=== PATIENT | male | born 1960 | race Two or more races ===

== ENCOUNTER 2019-05-30 09:10 | Outpatient (CLI) | payer OTHER ==
[2019-05-30 10:05] VITALS: BP 140/95
--- NOTE | 2019-05-30 10:05 | SLEEP CARE CONSULTATION ---
Information from patient questionnaire entered by Kristen Brady. I have reviewed and concur with the information entered by Kristen Brady. This document represents the service I personally performed and the decisions made by me, All Birmingham MD, [facility]. History of Present Illness Reason for Visit: New patient, Previously diagnosed sleep apnea (very severe AHI 66.7), sleep apnea on CPAP therapy Chief Complaint: reports: Other (to check CPAP) Usual bedtime: [id number] Time it takes to fall asleep: fast Observed to quit breathing while asleep: No Sleeps alone due to snoring: No Number of times waking at night: 3 Reasons for waking at night: reports: Pain Toss, Turn, or Twitch while sleeping: Yes Recalls having dreams: Yes Usually gets out of bed at: 0300 Feels refreshed in the morning: Yes Morning headache: No Sleepy or fatigued during the day: No Ever fallen asleep while driving: No Takes day naps: No Dreams during day naps: No Prior sleep studies: Yes Year and Where: 2008 [facility] Additional HPI information: I had the pleasure of seeing Mr. Duenas today regarding obstructive sleep apnea-hypopnea. As you know, he is a 58 year old gentleman who was diagnosed with the sleep-disordered breathing here in 2008. The AHI was 66.7 and tequila oxygen saturation was 70%. He is using a Respironics CPAP device set at 5 15 cmH2O. The machine is his second one. He uses it every night and all night. The compliance data show usage in 30 out of the past 30 nights, averaging 5 hours a night. The residual AHI is 2.6. He wears a nasal mask. He gets his supplies from [employer]. He finds the treatment very beneficial. He feels that occasionally the pressure is too high. He does not snore through the CPAP. Since the diagnosis, he has lost 20 lbs. CPAP Compliance Data - Data Reviewed with Patient Average duration of nightly device use: 4h 56m Compliance rate %: 76.7 Current pressure setting (cmH2O): 5-15 Humidity settin Subjective Initial Dustin Sleepiness Scale score: 14 Past Medical History Past Medical History: reports: Hypertension, Hypothyroidism, Other (back pain) Social History The patient is NOT EMPLOYED. Patient is and lives in [place]. Have you smoked in the past 12 months: No Alcohol use: Yes Alcohol amount and frequency: 3/week Caffeine use: Yes Caffeine amount and frequency: 1 cup/day Family History Family history of sleep disordered breathing: No Allergies and Home Medications Drug allergies reviewed: Yes Home medication list reviewed: Yes Review of Systems Weight loss over past 5 years: 37 Cardiovascular: reports: high blood pressure Respiratory: denies: shortness of breath, wheeze, sputum production, chronic cough, other Gastrointestinal: denies: heartburn, difficulty swallowing, nausea, vomitting, d iarrhea, abdominal pain, other Urinary: denies: incontinence, frequency, urgency, impotence, other Neurological: denies: headaches, seizure, head trauma, disorientation, speech dysfunction, gait or balance problems, fainting or unconsciousness, other Psychiatric: denies: Attention Deficit Hyperactivity, anxiety, depression, mood disorder, claustrophobia, other Ear/Nose/Throat: denies: nasal congestion, sinus problems, nose bleeds, dry mouth/throat, hoarseness, injury to nose, tonsillectomy, wisdom teeth removed, other Endocrine: reports: thyroid disease Musculoskeletal: reports: joint pain, back pain, mobility problems Immunologic: denies: sneezing, rash, itching, allergies to food or environment, other Physical Exam Vital signs obtained and entered by: Dr. Birmingham Blood Pressure: 140/95 Cuff size: regular Heart Rate: 66 O2 Saturation: 96 Height: 5 ft 10 in Weight: 206 lb Weight change since last visit: -20 Body Mass Index: 29.5 BMI Classification: Overweight Mood/affect: normal HEENT: No craniofacial malformation Nostrils: patent to airflow Turbinates: normal Septum: midline Mouth and throat: narrow oropharynx Soft palate: long Hard palate: normal Uvula: normal Uvula visualization: 25% Mallampati Class III Tongue: normal in size Tonsils: absent bilaterally Chin and jaw: normal size and position Neck: normal w/o lymphadenopathy or thyromegaly Heart: regular rate and rhythm Lungs: clear bilaterally Abdomen: soft, non-tender Extremities: no edema or clubbing Neurologic: intact, no focal deficits Impression and Plan IMPRESSION: 1. Obstructive Sleep Apnea-Hypopnea Syndrome, very severe, as previously diagnosed. The patient has had good treatment compliance. The current pressure setting appears effective but occasionally uncomfortable. The patient experiences improvement on the treatment. Narrow oropharynx and obesity are common predisposing factors for obstructive sleep apnea-hypopnea syndrome. Because the CPAP is now older than the useful life of 5 years, I will order the patient a new one and make it an autoCPAP set between 5 and 10 cmH2O. Plan: 1. Prescription made for an autoCPAP, heated humidifier, and related supplies. 2. Try new masks, e.g. Respironics DreamWear nasal cushion mask and ResMed N30i mask. 3. Try to lose more weight. 4. Return for follow up after one month on the new machine. I spent 100% of this 20 minute visit face to face with the patient with greater than 50% of this was spent time counseling the patient and coordination of care.
== END 2019-05-30 09:11 | disposition home or self-care (01) ==
LOC: SC 09:10
PROVIDERS: ATTEND Internal Medicine Pulmonary Disease
DX: G47.33 Obstructive sleep apnea (adult) (pediatric) (principal)
CPT/HCPCS: 99203; 99212

== ENCOUNTER 2019-08-09 09:10 | Outpatient (CLI) | payer OTHER | END 2019-08-09 23:59 | disposition home or self-care (01) | LOC: LAB.R 09:10 | PROVIDERS: ATTEND Family Medicine | DX: N39.0 Urinary tract infection, site not specified (principal) | CPT/HCPCS: 87086 ==

== ENCOUNTER 2019-08-23 08:43 | Outpatient (CLI) | payer OTHER ==
[2019-08-23 09:33] VITALS: BP 140/80
--- NOTE | 2019-08-23 09:33 | SLEEP CARE CONSULTATION ---
Information from patient questionnaire entered by Farrah Hayden. I have reviewed and concur with the information entered by Farrah Hayden. This document represents the service I personally performed and the decisions made by me, Sweta Miller, RN, MSN, MEDICARE INSURANCE SPECIALIST. History of Present Illness Previous diagnosis: Very Severe, Obstructive Sleep Apnea-Hypopnea Syndrome AHI: 66.7 Reason for follow up: first compliance after device update Equipment type: CPAP Equipment obtained from: [employer] (patient changed mind and will stay with [employer] at this time) Mask style: Nasal (Dreamwear) Mask brand: Respironics Backup mask available: Yes (has old style as spare) Last cushion change: 6 weeks CPAP Compliance Data - Data Reviewed with Patient Average duration of nightly device use: 5.75 Compliance rate %: 100 Current pressure setting (cmH2O): 5-10 Humidity settin Heated hose setting: off Average residual AHI: 4.6 Average large leak: 4 min 58 sec Subjective Patient concerns: denies: aerophagia, mask discomfort, air blowing in eyes, mask leak noise, condensation in mask/hose, nasal congestion, epistaxis Observed to snore while using device: No Current pressure setting perceived as: comfortable On therapy, patient: reports: sleeping better, awakening more refreshed, being more awake and alert during the day, more rested overall. denies: drowsiness while driving Initial [place] Sleepiness Scale score: 14 Current [place] Sleepiness Scale score: 6 Allergies and Home Medications Known drug allergies: Yes Home medication list reviewed: Yes Allergy and home medication list: thyroxine daily multivitamin daily ibuprofen 800mg bid with food. Review of Systems Review of systems same as previous: Yes Physical Exam Blood Pressure: 140/80 Cuff size: long Heart Rate: 67 O2 Saturation: 97 Height: 5 ft 10 in Weight: 214 lb 9.6 oz Body Mass Index: 30.7 BMI Classification: Obesity Class 1 Impression and Plan 1. Obstructive Sleep Apnea-Hypopnea Syndrome, very severe, with good treatment compliance and good apnea control. On CPAP therapy, the patient has better sleep quality and is more rested overall. Patient has lost weight with diet modifications. Currently patients BMI is 30.7 obesity class 1. Obesity increases the risk of apnea, CPAP pressure requirements and overall health risks especially cardiovascular and diabetes. Thus patient is advised to lose weight. Weight loss can be done with reducing portion size, refined foods and balancing content with vegetables, fruit and protein which patient is already doing per conversation. A diet consultation can be helpful in achieving optimal weight loss goals if unable to achieve on own. The BMI chart was reviewed. The patient would like to reduce to 200 pounds bringing their BMI down to 28. Patient encouraged to discuss their weight loss goals with their PCP and consider a referral to a counterintelligence specialist if needed. Currently he is pleased with his weight loss. He came in stating his blood pressure may be up due to coffee intake. I also explained how weight loss will also reduce blood pressure. The patient's current autoCPAP pressure should accommodate for future weight loss. Symptoms to report for additional pressure adjustment discussed. For problems with nasal congestion in summer, I discussed how this can be reduced by steamy shower to get pollen off body from mowing lawn. He is also to use his saline nasal spray to clean nasal passages to facilitate nasal breathing and wash off allergens. In addition, he can increase his humidity if needed. Patient's apnea severity and rationale for treatment to reduce apnea, improve sleep quality and reduce cardiovascular and cerebrovascular events was reviewed. * Continue CPAP pressure at 5-10 cmH2O * Implement methods to reduce nasal congestion * Notify me if snoring with mask or feeling that the pressure is too much or too little * Continue to lose weight * Call this office if any problems using CPAP * Return for follow up in 1 year , or sooner if concerns arise Time Spent with Patient (minutes): 30 I spent 100% of this visit face to face with the patient with greater than 50% of this was spent time counseling the patient and coordination of care.
== END 2019-08-23 08:44 | disposition home or self-care (01) ==
LOC: SC 08:43
PROVIDERS: ATTEND Nurse Practitioner Family
DX: G47.33 Obstructive sleep apnea (adult) (pediatric) (principal); E66.9 Obesity, unspecified; Z68.30 Body mass index [BMI] 30.0-30.9, adult
CPT/HCPCS: 99212; 99214

== ENCOUNTER 2020-08-21 14:04 | Outpatient (CLI) | payer OTHER ==
--- NOTE | 2020-08-21 14:41 | SLEEP CARE CONSULTATION ---
Information from patient questionnaire entered by Cortez Barron. I have reviewed and concur with the information entered by Cortez Barron. This document represents the service I personally performed and the decisions made by , Ashanti Rodrigues ARNP. History of Present Illness Service Date and Time: 08/21/2020 1404 Previous diagnosis: Very Severe, Obstructive Sleep Apnea-Hypopnea Syndrome AHI: 66.7 Reason for follow up: annual (Last seen 08/2019) Equipment type: CPAP Equipment obtained from: [employer] (getting supplies as needed) Mask style: Nasal (Dreamwear cushion) Mask brand: Respironics Backup mask available: Yes (old mask) Last cushion change: 2 weeks ago Prior sleep studies: Yes Year and Where: 2008 [facility] HPI additional information: AWILDA COFFMAN was diagnosed to have very severe, AHI 66.7, obstructive sleep apnea-hypopnea syndrome and returned today for CPAP therapy annual follow-up. Sleep Study - Results Prior sleep studies: Yes Year and Where: 2008 [facility] CPAP Compliance Data - Data Reviewed with Patient Average duration of nightly device use: 5 h 37 min Compliance rate %: 75.6 Current pressure setting (cmH2O): 5-10 Average residual AHI: 3.9 Central apnea: 0.4 Obstructive apnea: 1.0 Hypopnea: 2.5 Average large leak: 8 min 39 sec Subjective Missed days of use due to: reports: travel Patient concerns: reports: mask leak noise (movement of mask when turning; would like to try a nasal pillows mask). denies: aerophagia, mask discomfort, air blowing in eyes, condensation in mask/hose, nasal congestion, dry mouth, nose, throat, epistaxis, other Observed to snore while using device: No Current pressure setting perceived as: comfortable On therapy, patient: reports: sleeping better, awakening more refreshed, being more awake and alert during the day, more rested overall. denies: drowsiness while driving Initial [place] Sleepiness Scale score: 14 (in 2019) Current [place] Sleepiness Scale score: 9 Allergies and Home Medications Drug allergies reviewed: Yes (NKDA) Home medication list reviewed: Yes (no changes) Review of Systems Review of systems same as previous: Yes (no changes) Physical Exam Heart Rate: 71 O2 Saturation: 97 Height: 5 ft 10 in Weight: 227 lb Body Mass Index: 32.5 BMI Classification: Obese Impression and Plan 1. Obstructive Sleep Apnea-Hypopnea Syndrome, very severe, with fair treatment compliance and good apnea control. On CPAP therapy, the patient has better sleep quality and is more rested overall. He has been having some air leak noise since re-injuring his back. He has pain at night and is moving more in bed causing his mask to dislodge. He states he thinks it would be better if the mask holes went into his nostrils more. I informed him that there is a nasal pillows mask that has pillows that go into the nares and he would like to try them. He also states that he has not gotten another non-disposable filter for his machine that should be changed out every 6 months. I will write a prescription for him to try a nasal pillows type mask and to get a new non-disposable filter for his machine. He has no other concerns. He is to let us know if other issues develop or he has other questions. Patient's apnea severity and rationale for treatment to reduce apnea, improve sleep quality and reduce cardiovascular and cerebrovascular events was reviewed. I also reviewed the benefit of consistent device use of CPAP for hypertension. * Continue auto CPAP pressure at 5-10 cmH2O * Try the nasal pillows mask and replace non-disposable filter * Notify me if snoring with mask or feeling that the pressure is too much or too little * Attempt to lose weight * Call this office if any problems using CPAP * Return for follow up in 1 year, or sooner if concerns arise Counseling Topics: Spare mask, Weight loss health impact Visit Type: In Office Time Spent with Patient (minutes): 22 Provider Statement: I spent 100% of the Face to Face Visit with the patient with greater than 50% spent counseling the patient and coordination of care.
== END 2020-08-21 14:05 | disposition home or self-care (01) ==
LOC: SC 14:04
PROVIDERS: ATTEND Nurse Practitioner Family
DX: G47.33 Obstructive sleep apnea (adult) (pediatric) (principal); E66.9 Obesity, unspecified; Z68.32 Body mass index [BMI] 32.0-32.9, adult
CPT/HCPCS: 99212; 99213

== ENCOUNTER 2021-01-13 08:00 | Outpatient (CLI) | payer OTHER ==
--- NOTE | 2021-01-13 15:18 | XRAY Report ---
PROCEDURE: Chest 2 View X-Ray INDICATIONS: PRODUCTIVE COUGH TECHNIQUE: 2 view(s) of the chest. COMPARISON: None. FINDINGS: Surgical changes and devices: None. Lungs and pleura: No pleural effusions or pneumothorax. Lungs are clear. Mediastinum: Mediastinal contours are normal. Heart size is normal. Bones and chest wall: No suspicious bony abnormalities. Soft tissues appear unremarkable. IMPRESSION: No acute cardiopulmonary abnormality Reviewed by: Dany White on 01/13/2021 3:17 PM PDT Approved by: Dany White on 01/13/2021 3:17 PM PDT Station ID: [id number]
== END 2021-01-13 23:59 | disposition home or self-care (01) ==
LOC: DI.N 08:00
PROVIDERS: ATTEND Family Medicine
DX: R05 Cough (principal)

== ENCOUNTER 2021-01-13 08:00 | Outpatient (CLI) | payer OTHER | END 2021-01-13 23:59 | disposition home or self-care (01) | LOC: LAB.N 08:00 | PROVIDERS: ATTEND Family Medicine | DX: U07.1 COVID-19 (principal) ==

== ENCOUNTER 2021-04-29 06:49 | Day surgery (SDC) | payer OTHER ==
[2021-04-29] MEDS ORDERED: LACTATED RINGERS 1,000 ML IV ONE ×2 (06:59→08:50)
--- NOTE | 2021-04-29 07:30 | ANESTHESIA ---
Pre-Anesthesia VS, & Labs - Diagnosis screening - Procedure Colonoscopy Vital Signs: Temp Pulse Resp BP Pulse Ox 36.5 C 94 16 137/85 H 97 04/29/21 06:59 04/29/21 06:59 04/29/21 06:59 04/29/21 06:59 04/29/21 06:59 Height: 5 ft 11 in Weight (kg): 104.4 kg Body Mass Index: 32.1 BMI Classification: Obese - NPO >8 hours - Lab Results Lab results reviewed: Yes Home Medications and Allergies Home Medications: Ambulatory Orders Levothyroxine [Synthroid] 150 mcg PO DAILY 04/25/21 Lisinopril [Zestril] 20 mg PO DAILY 04/25/21 Testosterone Cypionate [Depo-Testosterone] 400 mg IM 04/25/21 Levothyroxine [Synthroid] 150 mcg PO DAILY 04/25/21 Lisinopril [Zestril] 20 mg PO DAILY 04/25/21 Testosterone Cypionate [Depo-Testosterone] 400 mg IM 04/25/21 Allergies/Adverse Reactions: Allergies Allergy/AdvReac Type Severity Reaction Status Date / Time codeine AdvReac Unknown Verified 04/25/21 12:31 Anes History & Medical History - Anesthetic History Anesthesia Complications: reports: No previous complications Family history of Anesthesia Complications: Denies Family history of Malignant Hyperthermia: Denies - Medical History Cardiovascular: reports: Hypertension Pulmonary: reports: Sleep apnea, CPAP use Gastrointestinal: reports: None Urinary: reports: None Musculoskeletal: reports: Chronic back pain Endocrine/Autoimmune: reports: HyPOthyroidism Skin: reports: None - Surgical History General: reports: Other Orthopedic: reports: Shoulder arthroplasty, Spine surgery, Other Exam General: Alert, Oriented x3, Cooperative, No acute distress Dental: WNL Mouth Openin Fingerbreadth Neck Mobility: Normal Mallampati classification: II Respiratory: Lungs clear, Normal breath sounds, No respiratory distress, No accessory muscle use Cardiovascular: Regular rate, Normal S1, Normal S2, No murmurs Plan Anesthesia Type: General, Total IV Consent for Procedure(s) Verified and Reviewed: Yes Code Status: Attempt Resuscitation ASA classification: 2-Mild systemic disease Is this case an emergency?: No
[2021-04-29] MEDS ORDERED: LIDOCAINE-PF 2% 10 ML AMP SUBQ ONE (09:03)
[2021-04-29] MEDS ORDERED: PROPOFOL 500 MG/50 ML 500 MG/50 ML VIAL ONE (09:03)
[2021-04-29 09:07] VITALS: BP 132/75
--- NOTE | 2021-04-29 09:50 | ANESTHESIA POST OP EVALUATION ---
Anesthesia Post Eval - Post Anesthesia Eval Vitals: Last Vital Signs Temp 36.5 C 04/29/21 09:06 Pulse 82 04/29/21 09:06 Resp 14 04/29/21 09:06 BP 132/75 H 04/29/21 09:06 Pulse Ox 97 04/29/21 09:06 CV Function Including HR & BP: Stable Pain Control: Satisfactory Nausea & Vomiting: Negative Mental Status: Baseline Respiratory Status: Airway Patent Hydration Status: Satisfactory Anesthesia Complications: None
== END 2021-04-29 06:50 | disposition home or self-care (01) ==
LOC: SDS 06:49
PROVIDERS: ATTEND Surgery
DX: Z12.11 Encounter for screening for malignant neoplasm of colon (principal); K57.30 Diverticulosis of large intestine without perforation or abscess without bleeding; K64.8 Other hemorrhoids; K64.4 Residual hemorrhoidal skin tags; G47.33 Obstructive sleep apnea (adult) (pediatric)
CPT/HCPCS: 45378; J7120

== ENCOUNTER 2021-10-06 15:11 | Outpatient (CLI) | payer OTHER ==
--- NOTE | 2021-10-06 16:53 | XRAY Report ---
PROCEDURE: Shoulder 3 View LT INDICATIONS: L SHOULDER PX TECHNIQUE: 3 views of the shoulder were acquired. COMPARISON: None. FINDINGS: Bones: No fractures or dislocations. No suspicious bony lesions. Visualized ribs appear intact. M ild periarticular osteophyte formation at the acromioclavicular and glenohumeral joints. Soft tissues: No suspicious soft tissue calcifications. IMPRESSION: Osteoarthritis. No acute fracture. No osseous lesion. If symptoms and/or clinical suspic ion for pathology continue, further assessment with repeat plain films, or advanced imaging (e.g., CT , MRI, or bone scan) is recommended for further assessment. Reviewed by: Edgar Estrella MD on 10/06/2021 4:52 PM PST Approved by: Edgar Estrella MD on 10/06/2021 4:52 PM PST Station ID: [id number]
== END 2021-10-06 15:12 | disposition home or self-care (01) ==
LOC: DI.N 15:11
PROVIDERS: ATTEND Physician Assistant
DX: M19.012 Primary osteoarthritis, left shoulder (principal)

== ENCOUNTER 2023-12-18 10:56 | Emergency (ER) | payer OTHER ==
[2023-12-18 11:28] VITALS: O2SAT 97
--- NOTE | 2023-12-18 12:42 | ED Physician Documentation ---
PD HPI HEAD INJURY - Stated complaint Stated Complaint: NECK INJURY - Chief complaint Chief Complaint: Trauma Hd/Nk - History obtained from History obtained from: Patient - History of Present Illness Mechanism of head injury: Fell (he states his leg gave out (not unusual with chronic back pain and leg weakness) and he fell forward striking face against wall or such. Pain in neck with feeling of tingling in left arm in particular, but some in right as well, with neck pain on ROM.) Timing - onset: Yesterday Location of injury: Front Quality of pain: Pain, Throbbing Associated symptoms: AMS (dazed and still feels slightly confused.), Nausea / vomiting. No: LOC Similar symptoms before: Has not had sx before PD PAST MEDICAL HISTORY - Past Medical History Past Medical History: Yes Cardiovascular: Hypertension Respiratory: Sleep apnea, CPAP use Neuro: None Endocrine/Autoimmune: HyPOthyroidism GI: None : None HEENT: None Psych: None Musculoskeletal: Chronic back pain Derm: None - Past Surgical History Past Surgical History: Yes General: Other Ortho: Shoulder arthroplasty, Spine surgery, Other - Present Medications Home Medications: Ambulatory Orders Medication Instructions Recorded Confirmed Levothyroxine [Synthroid] 150 mcg PO DAILY 04/25/21 02/03/22 Lisinopril [Zestril] 30 mg PO DAILY 04/25/21 02/03/22 Testosterone Cypionate 400 mg IM ONCE 04/25/21 02/03/22 [Depo-Testosterone] Ibuprofen [Motrin] 1 tablet PO Q8H PRN 02/03/22 02/03/22 Oxycodone HCl/Acetaminophen 1 - 2 each PO Q6H PRN #14 tablet 02/03/22 [Percocet 5-325 mg Tablet] HYDROcod/ACETAM 5/325 [Benton 5/325] 1 ea PO Q6H PRN #18 tablet 12/18/23 methocarbamoL [Robaxin] 500 mg PO Q6H PRN #30 tablet 12/18/23 - Allergies Allergies/Adverse Reactions: Allergies Allergy/AdvReac Type Severity Reaction Status Date / Time codeine AdvReac Unknown Verified 12/18/23 11:14 - Social History Does the pt smoke?: No Smoking Status: Never smoker Does the pt drink ETOH?: Yes Does the pt have substance abuse?: No - Immunizations Immunizations are current?: No Immunizations: Other immun not current - POLST Patient has POLST: No PD ED PE NORMAL - Vitals Vital signs reviewed: Yes - General General: Alert and oriented X 3, No acute distress, Well developed/nourished - Neck Neck: Supple, no meningeal sign, No adenopathy, Other (some tenderness to left paracervical muscles. No noted deformity. Collar placed by nursing in triage. ) - Derm Derm: Normal color, Warm and dry - Neuro Neuro: Alert and oriented X 3, No motor deficit, No sensory deficit, Normal speech Results - Vitals Vitals: Oxygen O2 Source Room air - Rads (name of study) neck CT Relevant Findings:: Prelim report reviewed (no fracture nor displaced elements. ) head CT Relevant Findings:: Prelim report reviewed (no ICH nor acute findings. ), EMP independent interpretation of test PD Medical Decision Making - ED course Complexity details: reviewed results (CT head and neck without acute injury. Presume the tingling is some nerve root impingement from muscles. ), considered differential (fell and struck face but has neck pain and feeling of tingiling in left arm, some in right. Can get imaging CT for fracture/dislocation. He is having some headache and mild nausea, could be c/w mild concussion. ), d/w patient Departure - Departure Disposition: 01 Home, Self Care Clinical Impression: Fall from slip, trip, or stumble, Acute strain of neck muscle, Mild concussion Condition: Stable Follow-Up: MICHAEL COBURN MD [Primary Care Provider] - Prescriptions: HYDROcod/ACETAM 5/325 [Benton 5/325] 1 ea PO Q6H PRN #18 tablet PRN Reason: Pain methocarbamoL [Robaxin] 500 mg PO Q6H PRN #30 tablet PRN Reason: Spasms Comments: Heat massage and stretching for the neck muscles to have good flexibility. Chiropractic or physical therapy is good as well. Your CT scans showed some mild arthritic changes but no notable abnormality 2 oh account for the pain. In particular no fractures nor large disc protrusions etc. This is not to say you are not having pain in the neck with some irritation of the nerve roots. This can come from inflammation or muscle spasms adjacent to the spine. Use some regular anti-inflammatory such as ibuprofen 600 mg 3 times a day with food. Add Tylenol 500 to 650 mg 4 times daily for pain. I would suggest also muscle relaxant such as methocarbamol 2-3 times daily to help with small muscle spasms and stiffness. To that add hydrocodone every 4-6 hours if needed for pain. Recheck if not improving well over the next several days to week. Follow-up with your provider. We did provide a disc for you of the images and [facility] [place] so they can access [facility]. Forms: PCP List Discharge Date/Time: 12/18/23 14:57
[2023-12-18] MEDS: KETOROLAC 30 MG/ML VIAL IM STA (13:22)
--- NOTE | 2023-12-18 14:08 | CT Report ---
PROCEDURE: Head WO INDICATIONS: fall, struck head TECHNIQUE: Noncontrast 4.5 mm thick angled axial sections acquired from the foramen magnum to the vertex. For r adiation dose reduction, the following was used: automated exposure control, adjustment of mA and/or kV according to patient size. COMPARISON: None. FINDINGS: Image quality: Excellent. CSF spaces: Basal cisterns are patent. No extra-axial fluid collections. Ventricles are normal in size and shape. Brain: No midline shift. No intracranial masses or hemorrhage. Dixon-white matter interface is norm al. Skull and face: Calvarium and visualized facial bones are intact, without suspicious lesions. Sinuses: Moderate mucosal thickening of the ethmoids and bilateral maxillary sinuses.. IMPRESSION: No acute intracranial pathology. Mild sinus disease of the ethmoid and maxillary sinuses Reviewed by: Renard Koo MD on 12/18/2023 1:07 PM FLOR Approved by: Renard Koo MD on 12/18/2023 1:07 PM AKDONA Station ID: [id number]
--- NOTE | 2023-12-18 14:11 | CT Report ---
PROCEDURE: Cervical Spine WO INDICATIONS: fall, neck pain TECHNIQUE: Noncontrast 3 mm thick sections acquired from the skull base to the T4 level. Sagittal and coronal r eformats were then constructed. For radiation dose reduction, the following was used: automated exp osure control, adjustment of mA and/or kV according to patient size. COMPARISON: None. FINDINGS: Image quality: Excellent. Bones: No fractures or dislocations. Visualized superior ribs are intact. Soft tissues: Prevertebral soft tissues are normal in thickness. No paravertebral hematomas. No ap ical pneumothoraces. IMPRESSION: No acute, displaced fracture or traumatic subluxation. Reviewed by: Renard Koo MD on 12/18/2023 1:09 PM [facility] Approved by: Renard Koo MD on 12/18/2023 1:09 PM [facility] Station ID: [id number]
[2023-12-18 14:59] VITALS: BP 148/97
== END 2023-12-18 14:57 | disposition home or self-care (01) ==
LOC: ED 10:56
DX: S06.0X0A Concussion without loss of consciousness, initial encounter (principal); S16.1XXA Strain of muscle, fascia and tendon at neck level, initial encounter; W18.39XA Other fall on same level, initial encounter; M54.9 Dorsalgia, unspecified; G89.29 Other chronic pain; R29.898 Other symptoms and signs involving the musculoskeletal system; R20.2 Paresthesia of skin
CPT/HCPCS: 96372; 99284